=== PATIENT | female | born 1985 | race Caucasian/White ===

== ENCOUNTER 2017-05-21 18:10 | Emergency (ER) | payer SELFPAY ==
[~2017-05-21] VITALS: Wt 79.0 kg
[2017-05-21] MEDS ORDERED: ONDANSETRON (ODT) 4 MG TAB ODT STA (19:08)
[2017-05-21 20:23] LABS: BASOPHILS % 0.4 % (0.0-2.0); EOSINOPHILS # 0.2 10^3/ul (0.0-0.5); EOSINOPHILS % 1.5 % (0.0-7.0); HEMATOCRIT 39.9 % (37.0-47.0); HEMOGLOBIN 13.7 g/dl (12.0-16.0); LYMPHOCYTES # 3.8 10^3/ul (0.8-2.9); LYMPHOCYTES % 32.9 % (15.0-51.0); MEAN CORPUSCULAR HEMOGLOBIN 31.2 pg (29.0-33.0); MEAN CORPUSCULAR HGB CONC 34.3 g/dl (32.0-37.0); MEAN CORPUSCULAR VOLUME 90.9 fl (82.0-101.0); MEAN PLATELET VOLUME 9.9 fl (7.4-10.4); MONOCYTE # 0.8 10^3/ul (0.3-0.9); MONOCYTES % 7.3 % (0.0-11.0); NEUTROPHIL # 6.6 10^3/ul (1.6-7.5); NEUTROPHILS % 57.5 % (39.0-77.0); PLATELET COUNT 302 10^3/UL (140-415); RED BLOOD COUNT 4.39 10^6/ul (4.20-5.40); RED CELL DISTRIBUTION WIDTH 12.1 % (11.5-14.5); WHITE BLOOD COUNT 11.4 10^3/ul (4.8-10.8)
--- NOTE | 2017-05-21 20:23 | RADRPT ---
PROCEDURE: US OB. CLINICAL INDICATION: , pelvic pain. TECHNIQUE: Multiple sonographic images of the pelvis were obtained. Transabdominal and transvagin al views of the pelvis are available for review. The images were reviewed on a PACS workstation. COMPARISON: No prior studies are available for comparison. FINDINGS: The uterus measures 9.8 x 5.3 x 7.2 cm. There is a single intrauterine . The mean gestation al sac diameter measures 1.31 cm, corresponding to a 7-bdpf-9-day . The crown-rump length equals 0.47 cm which corresponds to a 6 feet 1 inch by gestational age by ultrasound criteria. Feta l cardiac activity is not identified. No subchorionic hematoma is identified. The right ovary measures 2.3 x 2.0 x 2.2 cm. There is a 1.4 cm simple right ovarian cyst, normal for age. The left ovary measures 2.0 x 1.3 x 1.7 cm. Blood flow is demonstrated to both ovaries. The ad nexa are unremarkable. There is no free pelvic fluid. IMPRESSION: 1. Single intrauterine gestation of approximately 6 weeks 1 day. cardiac activity is not nilsa ntified, possibly due to early dates. Continued follow-up is recommended. 2. The estimated date of delivery is 01/13/2018. 3. Normal appearance of the ovaries. RPTAT: HTAR .Rafael Woody MD, MD Date Time Electronically viewed and signed by .Rafael Woody MD, MD on 05/21/2017 20:22 .R/
[2017-05-21 20:54] LABS: ADD UMIC YES; UR ASCORBIC ACID NEGATIVE (NEGATIVE); UR BACTERIA FEW /HPF (NONE SEEN); UR BILIRUBIN (Dip) NEGATIVE (NEGATIVE); UR BLOOD (Dip) 2+ mg/dL (NEGATIVE); UR CLARITY SLIGHTLY CLOUDY (CLEAR); UR COLOR STRAW (YELLOW); UR GLUCOSE (Dip) NEGATIVE (NEGATIVE); UR KETONES (Dip) NEGATIVE (NEGATIVE); UR LEUKOCYTE ESTERASE (Dip) NEGATIVE Leu/ul (NEGATIVE); UR NITRITE (Dip) NEGATIVE (NEGATIVE); UR RBC 0 /HPF (0-5); UR SPECIFIC GRAVITY (Dip) 1.005 (1.003-1.030); UR SQUAMOUS EPITHELIAL CELL FEW /HPF (FEW); UR TOTAL PROTEIN (Dip) NEGATIVE (NEGATIVE); UR UROBILINOGEN (Dip) NEGATIVE (NEGATIVE)
[2017-05-21] MEDS ORDERED: ACET325T33 PO (21:47)
--- NOTE | 2017-05-21 22:30 | ERD ---
ER Documentation Chief Complaint Date/Time DATE: 05/21/17 TIME: 22:25 Chief Complaint VAG BLEEDING, ONSET TODAY, MILD PAIN, A1 HPI This is a 31-year-old female presenting to emergency department with vaginal bleeding and mild pelvic pain starting today. Patient is a A1 with last menstrual period end of January. Patient states she had light spotting that turned into more moderate bleeding earlier today. No clots or tissue passed. Patient has not yet seen her OB doctor. Patient has not yet had ultrasound done yet. Patient had positive test at home 1 week ago. Patient currently does not have an OB physician. ROS All systems reviewed and are negative except as per history of present illness. Medications Home Meds Active Scripts Acetaminophen* (Tylenol*) 325 Mg Tablet, 1 TAB PO Q6 Y for PAIN AND OR ELEVATED TEMP, #20 TAB Prov:TAPAN TELLO NP 05/21/17 Allergies Allergies: Coded Allergies: No Known Allergy (Unverified , 05/21/17) PMhx/Soc Medical and Surgical Hx: pt denies Medical Hx, pt denies Surgical Hx Hx Alcohol Use: No Hx Substance Use: No Hx Tobacco Use: No Smoking Status: Never smoker Physical Exam Vitals Vital Signs Date Time Temp Pulse Resp B/P Pulse Ox O2 Delivery O2 Flow Rate FiO2 05/21/17 18:15 99.1 89 17 129/78 99 Physical Exam Const: No acute distress, alert Head: Atraumatic Eyes: Normal Conjunctiva ENT: Normal External Ears, Nose and Mouth. Neck: Full range of motion..~ No meningismus. Resp: Clear to auscultation bilaterally Cardio: Regular rate and rhythm, no murmurs Abd: Soft, non tender, non distended. Normal bowel sounds Skin: No petechiae or rashes Back: No midline or flank tenderness Ext: No cyanosis, or edema Neur: Awake and alert Psych: Normal Mood and Affect Result Diagram: 05/21/171953 Results 24 hrs Laboratory Tests Test 05/21/17 19:54 05/21/17 19:55 White Blood Count 11.410^3/ul Red Blood Count 4.3910^6/ul Hemoglobin 13.7g/dl Hematocrit 39.9% Mean Corpuscular Volume 90.9fl Mean Corpuscular Hemoglobin 31.2pg Mean Corpuscular Hemoglobin Concent 34.3g/dl Red Cell Distribution Width 12.1% Platelet Count 59528^3/UL Mean Platelet Volume 9.9fl Neutrophils % 57.5% Lymphocytes % 32.9% Monocytes % 7.3% Eosinophils % 1.5% Basophils % 0.4% Nucleated Red Blood Cells % 0.0/100WBC Neutrophils # 6.610^3/ul Lymphocytes # 3.810^3/ul Monocytes # 0.810^3/ul Eosinophils # 0.210^3/ul Basophils # 0.010^3/ul Nucleated Red Blood Cells # 0.010^3/ul Beta HCG, Quantitative 80608.0mIU/ml Urine Color STRAW Urine Clarity SLIGHTLY CLOUDY Urine pH 6.0 Urine Specific [place] 1.005 Urine Ketones NEGATIVEmg/dL Urine Nitrite NEGATIVEmg/dL Urine Bilirubin NEGATIVEmg/dL Urine Urobilinogen NEGATIVEmg/dL Urine Leukocyte Esterase NEGATIVELeu/ul Urine Microscopic RBC 0/HPF Urine Microscopic WBC 1/HPF Urine Squamous Epithelial Cells FEW/HPF Urine Bacteria FEW/HPF Urine Hemoglobin 2+mg/dL Urine Glucose NEGATIVEmg/dL Urine Total Protein NEGATIVEmg/dl Current Medications Medications (Trade) Dose Ordered Sig/Jesu Route PRN Reason Start Time Stop Time Status Last Admin Dose Admin Ondansetron HCl (Zofran Odt) 4 mg ONCE STAT ODT 05/21/17 19:08 05/21/17 19:10 DC 05/21/17 19:51 Procedures/MDM [place] [id number] Radiology Main Line: [phone] DIAGNOSTIC IMAGING REPORT Patient: LUCY WEINSTEIN : 1985 Age: 31 Sex: F MR #: [id number] DOS: 05/21/17 1908 Ordering MD: TAPAN TELLO NP Location: [facility] Room/Bed: PROCEDURE: US OB. CLINICAL INDICATION: , pelvic pain. TECHNIQUE: Multiple sonographic images of the pelvis were obtained. Transabdominal and transvaginal views of the pelvis are available for review. The images were reviewed on a PACS workstation. COMPARISON: No prior studies are available for comparison. FINDINGS: The uterus measures 9.8 x 5.3 x 7.2 cm. There is a single intrauterine . The mean gestational sac diameter measures 1.31 cm, corresponding to a 1-dwdb-3-day . The crown-rump length equals 0.47 cm which corresponds to a 6 feet 1 inch by gestational age by ultrasound criteria. cardiac activity is not identified. No subchorionic hematoma is identified. The right ovary measures 2.3 x 2.0 x 2.2 cm. There is a 1.4 cm simple right ovarian cyst, normal for age. The left ovary measures 2.0 x 1.3 x 1.7 cm. Blood flow is demonstrated to both ovaries. The adnexa are unremarkable. There is no free pelvic fluid. IMPRESSION: 1. Single intrauterine gestation of approximately 6 weeks 1 day. cardiac activity is not identified, possibly due to early dates. Continued follow-up is recommended. 2. The estimated date of delivery is 01/13/2018. 3. Normal appearance of the ovaries. MDM: This is a 31-year-old female presenting to emergency department with vaginal bleeding while . Patient's last menstrual period end of January 2017. Patient is a A1.. Patient started having mild to moderate vaginal bleeding earlier today. No clots or tissue passed. Patient had a positive test at home however has not had ultrasound or [employer] visit yet. CBC shows no significant anemia or infection. Beta-hCG is 21,716.0. Urine is negative for infection. OB ultrasound reviewed by radiologist as single intrauterine gestation of approximately 6 weeks 1 day. No cardiac activity is not identified, possibly due to early dates. Continued follow-up is recommended. Normal appearance of the ovaries.Discussed findings with patient. Differential diagnosis includes but not limited to ectopic , threatened , missed , normal , subchorionic hemorrhage , ruptured ovarian cyst, UTI or pyelonephritis. Instructed patient to return in 2 days for repeat lab work and ultrasound. Patient is appropriate for outpatient management. Patient given prescription for Tylenol. Instructed patient to follow-up here in the ED in 2 days. Follow- up with PCP or [employer] in the next week for reassessment and additional management. Resources provided. Return to ED sooner for any high fever, chest pain, difficulty breathing, shortness breath, wheezing, vomiting, diarrhea, abdominal pain or any new or worsening symptoms. Patient verbalizes understanding. All questions answered at discharge. Disclaimer: Inadvertent spelling and grammatical errors are likely due to EHR/ dictation software use and do not reflect on the overall quality of patient care. Also, please note that the electronic time recorded on this note does not necessarily reflect the actual time of the patient encounter. Departure Diagnosis: Primary Impression: Vaginal bleeding in patient at less than 20 weeks ges... Condition: Stable Patient Instructions: Bleeding During Early Referrals: [facility] YOU HAVE RECEIVED A MEDICAL SCREENING EXAM AND THE RESULTS INDICATE THAT YOU DO NOT HAVE A CONDITION THAT REQUIRES URGENT TREATMENT IN THE EMERGENCY DEPARTMENT. FURTHER EVALUATION AND TREATMENT OF YOUR CONDITION CAN WAIT UNTIL YOU ARE SEEN IN YOUR DOCTORS OFFICE WITHIN THE NEXT 1-2 DAYS. IT IS YOUR RESPONSIBILITY TO MAKE AN APPOINTMENT FOR FOLOW-UP CARE. IF YOU HAVE A PRIMARY DOCTOR --you should call your primary doctor and schedule an appointment IF YOU DO NOT HAVE A PRIMARY DOCTOR YOU CAN CALL OUR PHYSICIAN REFERRAL HOTLINE AT IF YOU CAN NOT AFFORD TO SEE A PHYSICIAN YOU CAN CHOSE FROM THE FOLLOWING [facility] [address] [facility] [address] [facility] [address] [facility] [address] [facility] [address] [facility]. [facility]. [address] [facility]. [facility] YOU HAVE RECEIVED A MEDICAL SCREENING EXAM AND THE RESULTS INDICATE THAT YOU DO NOT HAVE A CONDITION THAT REQUIRES URGENT TREATMENT IN THE EMERGENCY DEPARTMENT. FURTHER EVALUATION AND TREATMENT OF YOUR CONDITION CAN WAIT UNTIL YOU ARE SEEN IN YOUR DOCTORS OFFICE WITHIN THE NEXT 1-2 DAYS. IT IS YOUR RESPONSIBILITY TO MAKE AN APPOINTMENT FOR FOLOW-UP CARE. IF YOU HAVE A PRIMARY DOCTOR --you should call your primary doctor and schedule and appointment IF YOU DO NOT HAVE A PRIMARY DOCTOR YOU CAN CALL OUR PHYSICIAN REFERRAL HOTLINE AT . IF YOU CAN NOT AFFORD TO SEE A PHYSICIAN YOU CAN CHOSE FROM THE FOLLOWING [facility]: [facility] [address] [place] [address] [facility] [address] [place] [address] [facility] [address] [place] [address] [employer] [address] [facility] [address] [place] [address] OFFICE FAX , [facility] [address] [place] [address] [address] MARSHALL, [place] [address] [place] [address] [address] ANDERSON, [facility] [address] [facility], [address] [facility] [address] [address]LAND, [facility] [address] [facility] [place] [address] [facility] [address] [place] [address] [facility] [address] - JAVON GOMEZ [address] [facility]. [address], [facility] [address] [address] DENNIS, [place] [address] [facility]. [address], [facility] [place] [address] [address] BROCK, [facility] [address] [place], [place] [address] Additional Instructions: Return to this facility in 2 DAYS for a follow-up exam.Return sooner if your condition worsens. Return to ED for any high fever, chest pain, difficulty breathing, shortness breath, wheezing, vomiting, diarrhea, abdominal pain or any new or worsening symptoms. TAPAN TELLO NP May 21, 2017 22:29
== END 2017-05-21 21:48 | disposition left against medical advice (07) ==
LOC: FTE 18:10
DX: O20.9 Hemorrhage in early pregnancy, unspecified (principal); R10.2 Pelvic and perineal pain; Z3A.01 Less than 8 weeks gestation of pregnancy
CPT/HCPCS: 36415; 76801; 76817; 81001; 84702; 85025; 86900; 86901

== ENCOUNTER 2017-05-26 04:03 | Emergency (ER) | payer SELFPAY ==
[~2017-05-26] VITALS: Ht 167.6 cm; Wt 78.5 kg
[~2017-05-26 04:03] MED LIST: ACET325T33 PO
[2017-05-26 04:06] VITALS: Ht 167.6 cm; Wt 78.5 kg
--- NOTE | 2017-05-26 05:06 | ERD ---
ER Documentation Chief Complaint Date/Time DATE: 05/26/17 TIME: 05:02 Chief Complaint pt reports 6 weeks spotting 4 days ago, abd cramping today HPI 31-year-old female presents here in emergency department for complaints of vaginal bleeding for 4 days now, was seen here 4 days ago for the same problem , was initially spotting, now has heavier bleeding. She is complaining of pelvic pain and cramping pain, 4/10 scale, not better or worse with anything. Patient denies any flank pain. Patient denies any hematuria or dysuria. Patient is 3 para 1 0. LMP January 2017, unknown date. ROS All systems reviewed and are negative except as per history of present illness. Medications Home Meds Active Scripts Acetaminophen* (Tylophen*) 500 Mg Capsule, 1 CAP PO Q6H Y for PAIN AND OR ELEVATED TEMP, #20 CAP Prov:JAE PRIDE DISTRIBUTION TRANSFORMER ASSEMBLER 05/26/17 Acetaminophen* (Tylenol*) 325 Mg Tablet, 1 TAB PO Q6 Y for PAIN AND OR ELEVATED TEMP, #20 TAB Prov:TAPAN TELLO DISTRIBUTION TRANSFORMER ASSEMBLER 05/21/17 Allergies Allergies: Coded Allergies: No Known Allergy (Unverified , 05/21/17) PMhx/Soc Medical and Surgical Hx: pt denies Medical Hx, pt denies Surgical Hx Hx Alcohol Use: No Hx Substance Use: No Hx Tobacco Use: No Smoking Status: Never smoker FmHx Family History: No coronary disease, No diabetes, No other Physical Exam Vitals Vital Signs Date Time Temp Pulse Resp B/P Pulse Ox O2 Delivery O2 Flow Rate FiO2 05/26/17 06:57 98.3 80 20 118/70 98 Room Air 05/26/17 04:06 98.5 90 16 117/80 100 Physical Exam GENERAL: The patient is well developed and appropriate for usual state of health, in no apparent distress. CHEST: Clear to auscultation bilaterally. There are no rales, wheezes or rhonchi. HEART: Regular rate and rhythm. No murmurs, clicks, rubs or gallops. No S3 or S4. ABDOMEN: Soft, nontender and nondistended. Good bowel sounds. No rebound or guarding. No gross peritonitis. No gross organomegaly or masses. No Mcclure sign or McBurney point tenderness. BACK: No midline or flank tenderness. EXTREMITIES: Equal pulses bilaterally. There is no peripheral clubbing, cyanosis or edema. No focal swelling or erythema. Full range of motion. Grossly neurovascularly intact. NEURO: Alert and oriented. Cranial nerves 2-12 intact. Motor strength in all 4 extremities with 5/5 strength. Sensation grossly intact. Normal speech and gait. SKIN: There is no apparent rash or petechia. The skin is warm and dry. HEMATOLOGIC AND LYMPHATIC: There is no evidence of excessive bruising or lymphedema. No gross cervical, axillary, or inguinal lymphadenopathy. VAGINAL: moderate amount of blood in the vaginal vault, cervical os is closed, no CMT, no adnexal tenderness Result Diagram: 05/26/17 0455 Results 24 hrs Laboratory Tests Test 05/26/17 04:55 White Blood Count 9.110^3/ul Red Blood Count 4.5010^6/ul Hemoglobin 13.9g/dl Hematocrit 40.5% Mean Corpuscular Volume 90.0fl Mean Corpuscular Hemoglobin 30.9pg Mean Corpuscular Hemoglobin Concent 34.3g/dl Red Cell Distribution Width 11.9% Platelet Count 69593^3/UL Mean Platelet Volume 9.7fl Neutrophils % 60.0% Lymphocytes % 30.8% Monocytes % 6.5% Eosinophils % 2.0% Basophils % 0.3% Nucleated Red Blood Cells % 0.0/100WBC Neutrophils # 5.510^3/ul Lymphocytes # 2.810^3/ul Monocytes # 0.610^3/ul Eosinophils # 0.210^3/ul Basophils # 0.010^3/ul Nucleated Red Blood Cells # 0.010^3/ul Urine Color RED Urine Clarity TURBID Urine pH 6.0 Urine Specific [place] 1.023 Urine Ketones NEGATIVEmg/dL Urine Nitrite NEGATIVEmg/dL Urine Bilirubin NEGATIVEmg/dL Urine Urobilinogen NEGATIVEmg/dL Urine Leukocyte Esterase NEGATIVELeu/ul Urine Microscopic RBC > 182/HPF Urine Microscopic WBC 0/HPF Urine Mucus FEW/HPF Urine Hemoglobin 3+mg/dL Urine Glucose 1+mg/dL Urine Total Protein 2+mg/dl Beta HCG, Quantitative 74015.0mIU/ml AMENDMENT: 05/26/2017 5:37:43 AM Katelyn Felix M.d In comparison is made to prior examination dated 05/21/2017. No heart tones are present on the prior examination, there has been no interval growth. Findings are compatible with early failed . PROCEDURE: US OB. CLINICAL INDICATION: Vaginal bleeding in . TECHNIQUE: Transabdominal and endovaginal imaging of the gravid uterus is available for review COMPARISON: None available FINDINGS: There is a single intrauterine with a crown-rump length of 0.39 cm, giving an estimated gestational age of 6 weeks 1 day by ultrasound criteria. No heart tones are detected. No subchorionic hemorrhage is identified. The ovaries are unremarkable. IMPRESSION: Single intrauterine with an estimated gestational age of 6 weeks 1 day by ultrasound criteria. No heart tones are detected. Findings are suspicious for early failed . Repeat pelvic ultrasound is recommended in 1 week. RPTAT: HH .Katelyn Felix MD, Date Time Electronically viewed and signed by .Katelyn Felix MD, MD on 05/26/2017 05 :37 .G/ CC: JAE PRIDE DISTRIBUTION TRANSFORMER ASSEMBLER Procedures/MDM Medical Decision Making: Patients vaginal bleeding is most likely consistent of possible threatened . Patient does not show any evidence of hypovolemic shock. Patients hemoglobin and hematocrit is stable. There is low suspicion for ectopic . SUZE results show 6 week 1 days without FHT, same as last time, consistent with failed . BetaHCG Quantitative is lower than befrore.The patient is Rh+, does not need RhoGAM this time. There is no signs of symptoms of dehydration. There is low suspicion for sepsis. Patient appears well and is hemodynamically stable. Disposition: Home. Condition: Stable Rx; Tylenol Instructions: Patient is advised to do bed rest, avoid heavy lifting, and avoid having sex until cleared by OB doctor. Patient is advised to follow up with OB doctor or here at the ER in 48 hours for reevaluation of symptoms, repeat beta HCG quantitative and ultrasound. Patient is advised that is symptoms are worst, severe bleeding, dizziness, severe abdominal pain, fever, worst signs and symptoms to return to the emergency department immediately. Disclaimer: Inadvertent spelling and grammatical errors are likely due to EHR/ dictation software use and do not reflect on the overall quality of patient care. Also, please note that the electronic time recorded on this note does not necessarily reflect the actual time of the patient encounter. Departure Diagnosis: Primary Impression: Vaginal bleeding in patient at less than 20 weeks gestation Condition: Stable Patient Instructions: Bleeding During Early Additional Instructions: Patient is advised to do bed rest, avoid heavy lifting, and avoid having sex until cleared by OB doctor. Patient is advised to follow up with OB doctor or here at the ER in 48 hours for reevaluation of symptoms, repeat beta HCG quantitative and ultrasound. Patient is advised that is symptoms are worst, severe bleeding, dizziness, severe abdominal pain, fever, worst signs and symptoms to return to the emergency department immediately. JAE PRIDE NP May 26, 2017 05:06
[2017-05-26 05:12] LABS: BASOPHILS % 0.3 % (0.0-2.0); EOSINOPHILS # 0.2 10^3/ul (0.0-0.5); HEMATOCRIT 40.5 % (37.0-47.0); HEMOGLOBIN 13.9 g/dl (12.0-16.0); LYMPHOCYTES # 2.8 10^3/ul (0.8-2.9); LYMPHOCYTES % 30.8 % (15.0-51.0); MEAN CORPUSCULAR HEMOGLOBIN 30.9 pg (29.0-33.0); MEAN CORPUSCULAR HGB CONC 34.3 g/dl (32.0-37.0); MEAN PLATELET VOLUME 9.7 fl (7.4-10.4); MONOCYTE # 0.6 10^3/ul (0.3-0.9); MONOCYTES % 6.5 % (0.0-11.0); NEUTROPHIL # 5.5 10^3/ul (1.6-7.5); PLATELET COUNT 286 10^3/UL (140-415); RED CELL DISTRIBUTION WIDTH 11.9 % (11.5-14.5); WHITE BLOOD COUNT 9.1 10^3/ul (4.8-10.8)
[2017-05-26 05:26] LABS: ADD UMIC YES; UR ASCORBIC ACID NEGATIVE (NEGATIVE); UR BILIRUBIN (Dip) NEGATIVE (NEGATIVE); UR BLOOD (Dip) 3+ mg/dL (NEGATIVE); UR CLARITY TURBID (CLEAR); UR COLOR RED (YELLOW); UR GLUCOSE (Dip) 1+ mg/dL (NEGATIVE); UR KETONES (Dip) NEGATIVE (NEGATIVE); UR LEUKOCYTE ESTERASE (Dip) NEGATIVE Leu/ul (NEGATIVE); UR MUCUS FEW /HPF (NONE SEEN); UR NITRITE (Dip) NEGATIVE (NEGATIVE); UR RBC > 182 /HPF (0-5); UR SPECIFIC GRAVITY (Dip) 1.023 (1.003-1.030); UR TOTAL PROTEIN (Dip) 2+ mg/dl (NEGATIVE); UR UROBILINOGEN (Dip) NEGATIVE (NEGATIVE)
--- NOTE | 2017-05-26 05:37 | RADRPT ---
AMENDMENT: 05/26/2017 5:37:43 AM Katelyn Felix M.d In comparison is made to prior examination dated 05/21/2017. No heart tones are present on the prior examination, there has been no interval growth. Findings are compatible with early failed pre gnancy. PROCEDURE: US OB. CLINICAL INDICATION: Vaginal bleeding in . TECHNIQUE: Transabdominal and endovaginal imaging of the gravid uterus is available for review COMPARISON: None available FINDINGS: There is a single intrauterine with a crown-rump length of 0.39 cm, giving an estimated ge stational age of 6 weeks 1 day by ultrasound criteria. No heart tones are detected. No subch orionic hemorrhage is identified. The ovaries are unremarkable. IMPRESSION: Single intrauterine with an estimated gestational age of 6 weeks 1 day by ultrasound crite derrick. No heart tones are detected. Findings are suspicious for early failed . Repea t pelvic ultrasound is recommended in 1 week. RPTAT: HH .Katelyn Felix MD, Date Time Electronically viewed and signed by .Katelyn Felix MD, on 05/26/2017 05:37 .G/
[2017-05-26] MEDS ORDERED: ACET500C5 PO (05:48)
[2017-05-26 06:57] VITALS: BP 118/70; PULSE 80; RESP 20; TEMP 98.3
== END 2017-05-26 07:10 | disposition home or self-care (01) ==
LOC: FTE 04:03
DX: O20.9 Hemorrhage in early pregnancy, unspecified (principal); R10.2 Pelvic and perineal pain; Z3A.01 Less than 8 weeks gestation of pregnancy
CPT/HCPCS: 36415; 76801; 76817; 81001; 84702; 85025

== ENCOUNTER 2018-11-24 13:44 | Inpatient (IN) | payer MEDICAID ==
[~2018-11-24] VITALS: Ht 165.1 cm; Wt 91.0 kg
[~2018-11-24 13:44] MED LIST changes: +ACET500C5 PO
[2018-11-24 14:57] VITALS: Ht 165.1 cm; Wt 91.0 kg
[2018-11-24 15:01] VITALS: BP 132/80; PULSE 95; RESP 17
[2018-11-24] MEDS ORDERED: METHYLERGONOVINE 0.2 MG INJ IM PRN (16:00)
[2018-11-24] MEDS ORDERED: CARBOPROST 250 MCG INJ IM PRN (16:00)
[2018-11-24] MEDS ORDERED: OXYTOCIN 30 UNITS/LR 500 ML IV SCH ×2 (16:00)
[2018-11-24] MEDS ORDERED: OXYTOCIN 30 UNITS/LR 500 ML IV PRN (16:00)
[2018-11-24] MEDS ORDERED: MISOPROSTOL 200 MCG TAB PR PRN (16:00)
[2018-11-24] MEDS ORDERED: LIDOCAINE 1% (MPF) 30 ML INJ INJ PRN (16:00)
[2018-11-24] MEDS: MISOPROSTOL 50 MCG CAPSULE PO SCH ×2 (16:46→20:55)
[2018-11-24] MEDS: LACTATED RINGER'S 1,000 ML IV SCH (20:55)
[2018-11-25] MEDS: LACTATED RINGER'S 1,000 ML IV SCH ×3 (03:06→11:04)
[2018-11-25] MEDS: MISOPROSTOL 50 MCG CAPSULE PO SCH ×5 (03:07→17:00)
--- NOTE | 2018-11-25 09:52 | PREAC ---
Date/Time of Note Date/Time of Note DATE: 11/25/18 TIME: 09:51 Anesthesia Eval and Record Evaluation Time Pre-Procedure Interview DATE: 11/25/18 TIME: 09:51 Age 33 Sex female NPO: 8 hrs Preoperative diagnosis labor pain Planned procedure epidural Past Medical History Past Medical History: Includes : Gestational age: (39.2) Surgery & Anesthesia Issues No known issue Meds Anticoagulation: No Beta Ayaan within 24 hr: No Reason Beta Ayaan not given: Pt. not on B-Ayaan Active Scripts Acetaminophen* (Tylophen*) 500 Mg Capsule, 1 CAP PO Q6H PRN for PAIN AND OR ELEVATED TEMP, #20 CAP Prov:JAE PRIDE WINE AND SPIRITS CLERK 05/26/17 Acetaminophen* (Tylenol*) 325 Mg Tablet, 1 TAB PO Q6 PRN for PAIN AND OR ELEVATED TEMP, #20 TAB Prov:TAPAN TELLO WINE AND SPIRITS CLERK 05/21/17 Current Medications Lactated Ringer's 1,000 ml @ 125 mls/hr Q8H IV Last administered on 11/25/18at 03:06; Admin Dose 125 MLS/HR; Start 11/24/18 at 15:35 Lidocaine (Xylocaine 1% (Mpf)) 30 ml ONCE PRN INJ .EPISIOTOMY; Start 11/24/18 at 16:00 Oxytocin/Lactated Ringer's 500 ml @ 500 mls/hr ONCE POST IV ; Start 11/24/18 at 16:00 Oxytocin/Lactated Ringer's 500 ml @ 125 mls/hr POST IV ; Start 11/24/18 at 16:00 Oxytocin/Lactated Ringer's 500 ml @ 0 mls/hr ONCE PRN IV .VAGINAL BLEEDING; Start 11/24/18 at 16:00 Methylergonovine Maleate (Methergine) 0.2 mg ONCE PRN IM .VAGINAL BLEEDING; Start 11/24/18 at 16:00 Carboprost Tromethamine (Hemabate) 250 mcg ONCE PRN IM .VAGINAL BLEEDING; Start 11/24/18 at 16:00 Misoprostol (Cytotec) 1,000 mcg ONCE PRN RI .VAGINAL BLEEDING; Start 11/24/18 at 16:00 Misoprostol (Cytotec 50 Mcg Capsule) 50 mcg Q4 PO Last administered on 11/25/18at 07:57; Admin Dose 50 MCG; Start 11/24/18 at 17:00; Stop 11/25/18 at 17:00 Meds reviewed: Yes Allergies Coded Allergies: No Known Allergy (Unverified , 05/21/17) Allergies Reviewed: Yes Labs/Studies Labs Reviewed: Reviewed by anesthesiologist Result Diagram: 11/24/18 1429 Laboratory Tests 11/24/18 14:29 Blood Bank Test 11/24/18 14:29 Antibody Screen NEGATIVE Blood Type B POSITIVE Rh Immune Globulin Candidate NO test: Positive Studies: ECG (n/a), CXR (n/a) Pre-procedure Exam Last vitals Vital Signs Date Temp Pulse Resp B/P (MAP) Pulse Ox O2 O2 Flow FiO2 Time Delivery Rate 11/24/18 98.1 95 17 132/80 99 Room Air 15:01 (97) Airway: Adequate mouth opening Mallampati: Mallampati I Teeth: Normal Lung: Normal Heart: Normal ASA Physical Status ASA physical status: 2 Emergency: None Planned Anesthetic Neuraxial: Epidural Pre-operative Attestations Prior to commencing anesthesia and surgery, the patient was re-evaluated, there was verification of: *The patient's identity *The results of appropriate recent lab work and preoperative vital signs *The above evaluation not changing prior to induction *Anesthetic plan, risk benefits, alternative and complications discussed with patient/family; questions answered; patient/family understands, accepts and wishes to proceed. ANTONIA HANSEN MD Nov 25, 2018 09:52
[2018-11-25] MEDS ORDERED: FENTAnyl 2MCG/ML-ROPIV 0.2% 100 ML ONE (10:09)
--- NOTE | 2018-11-25 12:50 | PAC ---
Date/Time of Note Date/Time of Note DATE: 11/25/18 TIME: 12:49 Post-Anesthesia Notes Post-Anesthesia Note Last documented vital signs Vital Signs Date Temp Pulse Resp B/P (MAP) Pulse Ox O2 O2 Flow FiO2 Time Delivery Rate 11/25/18 98.1 95 17 132/80 99 Room Air 12:01 (97) Activity: WNL Respiratory function: WNL Cardiovascular function: WNL Mental status: Baseline Pain reasonably controlled: Yes Hydration appropriate: Yes Nausea/Vomiting absent: No ANTONIA HANSEN MD Nov 25, 2018 12:50
[2018-11-25] MEDS ORDERED: NALOXONE (0.4 MG/ML) INJ IV PRN (13:00)
[2018-11-25] MEDS ORDERED: FENTAnyl 2MCG/ML-ROPIV 0.2% 100 ML BAG EPI SCH (13:00)
[2018-11-25] MEDS ORDERED: ONDANSETRON 4 MG INJ IV PRN ×2 (13:00→21:30)
[2018-11-25 18:14] VITALS: BP 138/80; PULSE 60; RESP 19
[2018-11-25 18:29] VITALS: BP 150/83; PULSE 70; RESP 18
[2018-11-25 18:43] VITALS: BP 143/67; PULSE 78; RESP 18
--- NOTE | 2018-11-25 19:00 | HP ---
Date/Time of Note Date/Time of Note DATE: 11/25/18 TIME: 18:55 OB - History Hx of Present Free Text/Dictation Late entry note. Patient seen on 11/24/2018 33 years old with single intrauterine at 39 weeks and 3 days with a YANA of 11/29/2018 was seen at [facility] yesterday for pyelectasis. She was complaining of shortness of breath. She referred to labor and delivery for induction of labor. She states good movement. She denies nausea, vomiting, shortness of breath, chest pain, headache, visual changes, vaginal bleeding or LOF. Chief Complaint: Admitted for induction of labor Estimated Due Date: Nov 29, 2018 : 4 Para: 1 Spontaneous : 2 Therapeutic : 0 Care: Good Care Ultrasounds: Normal mid trimester US Medical Complications: None Past Family/Social History * Past Medical, Surgical, Family and Obstetric Histories reviewed from chart. Blood Type: B+ Rubella: immune RPR/VDRL: Negative GBS Status: Negative HBsAG: Negative OB Admission Exam Vital Signs Vital Signs Vital Signs Date Temp Pulse Resp B/P (MAP) Pulse Ox O2 O2 Flow FiO2 Time Delivery Rate 11/25/18 98.9 60 19 138/80 Room Air 18:14 (99) 11/24/18 99 15:01 Physical Exam HEENT: WNL Heart: Rhythm Normal Lungs: Clear Abdomen: WNL Extremities: Normal Reflexes: Normal Cervical Dilatation: 1cm Effacement: 50% Station: -2 Membranes: Intact Heart Rate: 140's Accelerations: Accelerations Present Decelerations: No Decelerations Varibility: Moderate Contractions on Admission: >10 Minutes Apart Intensity: Mild Last 72 hours Lab Results CBC & BMP 11/24/18 14:29 OB Assessment/Plan Other plan: 33 years old 4 para 1021 with single intrauterine at 39 weeks and 3 days admitted for induction of labor for pyelectasis and having shortness of breasts - FHR: No sign of metabolic acidosis- Category I - Continuous EFM, toco - CBC, blood type and screen - Analgesia options with R/B/A discussed in detail with patient - Epidural per patient request - Please see the orders - OB/Rubella: Immune - GBS: Negative Admission, procedures, expectations, risks and possible complications have been discussed in detail with the patient. Risk of vaginal delivery including but not limited to bleeding, infection, cervical laceration, placental retention, injury to fetus, blood transfusion, blood transfusion related infection, risk of anesthesia, adhesion, cervical laceration, episiotomy/laceration, possible delivery with risk of bleeding, infection, injury to other organs (bowel, bladder, ureter, vessels, nerves), injury to fetus, blood transfusion, blood transfusion related infection, risk of anesthesia, scar and hernia formation, needs for future , removal of uterus or any other indicated surgery discussed with the patient. She expressed understanding and repeats the risks. All of her questions were answered. She signed the informed consent. PHYSICIAN'S VERIFICATION OF INFORMED CONSENT The patient was counseled regarding the procedure, its indications, risks, po tential complications and alternatives and any questions were answered. Consent was obtained. PLANNED PROCEDURE/TREATMENT: Vaginal delivery, episiotomy, repair of laceration possible delivery SIVA OLEARY Nov 25, 2018 19:00
[2018-11-25] MEDS ORDERED: ONDANSETRON 4 MG INJ IV STA (19:40)
[2018-11-25] MEDS ORDERED: ACETAMINOPHEN 325 MG TAB PO PRN ×2 (20:00→21:30)
--- NOTE | 2018-11-25 20:25 | LDN ---
Date/Time of Note Date/Time of Note DATE: 11/25/18 TIME: 20:21 Delivery Summary 33 years old with single intrauterine at 39 weeks and 4 days delivered a viable male over median episiotomy. Nose and mouth suctioned. Rest of body delivered. Cord was clamped and cut after stopping pulsation. Baby given to the nurse. Placenta delivered intact and spontaneously with three-vessel cord. Episiotomy and vaginal wall laceration at left lateral repaired with 2-0 Vicryl. Patient tolerated procedure well. Time of delivery 17:24 Weight 9 pounds 3 ounces - 4175 g 8 at 1 minutes and 9 at 5 minutes EBL 300 ml Weeks of Gestation 39 weeks and 4 days Placenta Delivered: Spontaneously Meconium: none Episiotomy: Yes Indication for episiotomy Facilitate vaginal delivery Anesthesia type: Epidural Estimated blood loss: 300 Sponge & Needle done & correct: Yes All needle counts correct: Yes Any foreign bodies felt in the: No Infant Delivery Information Sex Infant Sex: male Apgars 1 Minute: 8 5 Minute: 9 10 Minute: 10 Suctioning Nose & mouth suctioned at jennifer: Yes Umbilical Cord Umbilical cord with: 3 Vessels Cord presentations: no nuchal cord Cord Blood was obtained: Yes Mother & Baby Disposition Disposition Mom & Baby to Maternity; Good: Yes SIVA OLE[facility] Nov 25, 2018 20:25
[2018-11-25] MEDS ORDERED: LABETALOL 100 MG TAB PO SCH (21:00)
[2018-11-25] MEDS ORDERED: DEXTROSE 5%-LR 1,000 ML IV SCH (21:16)
[2018-11-25] MEDS ORDERED: LACTATED RINGER'S 1,000 ML IV* SCH (21:16)
[2018-11-25 21:25] VITALS: BP 119/74; PULSE 81; RESP 18
[2018-11-25] MEDS ORDERED: BENZOCAINE 20% 56 ML SPRAY TOP PRN (21:30)
[2018-11-25] MEDS ORDERED: CARBOPROST 250 MCG INJ IM PRN (21:30)
[2018-11-25] MEDS ORDERED: METHYLERGONOVINE 0.2 MG INJ IM PRN (21:30)
[2018-11-25] MEDS ORDERED: DIPHENHYDRAMINE 50 MG INJ IV PRN (21:30)
[2018-11-25] MEDS ORDERED: WITCH HAZEL/GLYCERIN PAD PR PRN (21:30)
[2018-11-25] MEDS ORDERED: ZOLPIDEM 5 MG TAB PO PRN (21:30)
[2018-11-25] MEDS ORDERED: DIBUCAINE 1% 30 GM OINT TOP PRN (21:30)
[2018-11-25] MEDS ORDERED: OXYCODONE/ASPIRIN (4.88/325) TAB PO PRN (21:30)
[2018-11-25] MEDS ORDERED: OXYTOCIN 30 UNITS/LR 500 ML IV PRN (21:30)
[2018-11-25] MEDS ORDERED: MISOPROSTOL 200 MCG TAB PR PRN (21:30)
[2018-11-25] MEDS: IBUPROFEN 600 MG TAB PO SCH (23:31)
[2018-11-25] MEDS: SENNA/DOCUSATE NA (8.6MG/50MG) TAB PO PRN (23:31)
[2018-11-25] MEDS: LANOLIN HPA 1 PKT TOP PRN (23:31)
[2018-11-25 23:53] VITALS: BP 120/81; PULSE 91; RESP 18
[2018-11-26 03:51] VITALS: BP 102/72; PULSE 95
[2018-11-26] MEDS: IBUPROFEN 600 MG TAB PO SCH ×3 (05:49→17:11)
[2018-11-26 07:40] VITALS: BP 108/69; PULSE 82; RESP 18
[2018-11-26] MEDS: LANOLIN HPA 1 PKT TOP PRN (07:49)
[2018-11-26] MEDS: SENNA/DOCUSATE NA (8.6MG/50MG) TAB PO PRN (09:42)
--- NOTE | 2018-11-26 10:04 | PN ---
Date/Time of Note Date/Time of Note DATE: 11/26/18 TIME: 10:03 OB Subjective Subjective Subjective PPD# 1 Patient is doing well. She denies nausea, vomiting, shortness of breath, chest pain, headache. She has been ambulating without difficulty, tolerating regular diet. Pain is well controlled on current medications OB Objective Objective Objective VS - Last 72 Hours, by Label Date Temp Pulse Resp B/P (MAP) Pulse Ox O2 O2 Flow FiO2 Time Delivery Rate 11/26/18 98.1 95 102/72 Room Air 03:51 (82) 11/25/18 97.8 91 18 120/81 Room Air 23:53 (94) 11/25/18 99.0 81 18 119/74 Room Air 21:25 (89) 11/25/18 78 18 143/67 Room Air 18:43 (92) 11/25/18 70 18 150/83 Room Air 18:29 (105) 11/25/18 98.9 60 19 138/80 Room Air 18:14 (99) 11/24/18 98.1 95 17 132/80 99 Room Air 15:01 (97) General: AAO X 3, comfortable, NAD, appropriate mood and affect. ABD: +BS. Soft, non-tender. Uterus 2 cm below umbilicus Flank: No CVA tenderness (B/L) LE: Mild edema. No clubbing, cyanosis, thigh or calf tenderness (B/L). Homans 'sign is negative OB Assessment/Plan Other plan: 33 years old 4 para 2021 s/p normal vaginal delivery at 39 weeks and 4 days. PPD#1 - AF, VSS - Contraception methods with R/B/A/FR discussed - Continue care - Discharge home tomorrow - Rx and instruction given - Follow up in 2 and 6 weeks at clinic [facility] Nov 26, 2018 10:04
--- NOTE | 2018-11-26 10:08 | DS ---
Date/Time of Note Date/Time of Note DATE: 11/26/18 TIME: 10:07 Obstetrical Discharge Record Final Diagnosis Final Diagnosis: Term delivered Other Final Diagnosis 33 years old 4 para 2021 s/p normal vaginal delivery at 39 weeks and 4 days. PPD#1. course was unremarkable. She is ambulating and tolerating regular diet. She is voiding without difficulty. Pain is controlled on current medication. - AF, VSS - Contraception methods with R/B/A/FR discussed - Continue care - Discharge home tomorrow - Rx and instruction given - Follow up in 2 and 6 weeks at clinic Vaginal Delivery Obstetrical Delivery: Spontaneous Condition on Discharge Physical Assessment Last Vitals: Vital Signs Date Temp Pulse Resp B/P (MAP) Pulse Ox O2 O2 Flow FiO2 Time Delivery Rate 11/26/18 98.1 95 102/72 Room Air 03:51 (82) 11/25/18 18 23:53 11/24/18 99 15:01 Voiding: Yes Bowel Movement: Yes Breast: Soft, non-tender Fundus: Firm Calf Tenderness: No Patient Condition: Stable SIVA OLE[facility] Nov 26, 2018 10:08
[2018-11-26 15:30] VITALS: BP 111/67; PULSE 82; RESP 18
[2018-11-26 20:00] VITALS: BP 115/72; PULSE 89; RESP 16
[2018-11-27] MEDS: IBUPROFEN 600 MG TAB PO SCH ×3 (00:14→11:52)
[2018-11-27 04:48] VITALS: BP 115/70; PULSE 76; RESP 20
[2018-11-27 08:10] VITALS: BP 122/90; PULSE 82; RESP 18
[2018-11-27] MEDS ORDERED: DIPHTH/TET/ACEL PERTUSS (ADULT) 0.5 ML VIAL IM* ONE (09:00)
[2018-11-27] MEDS ORDERED: MEASLES,MUMPS,RUBELLA VACCINE INJ SC* ONE (09:00)
[2018-11-27] MEDS: SENNA/DOCUSATE NA (8.6MG/50MG) TAB PO PRN (09:29)
--- NOTE | 2018-11-27 14:00 | PD.PPDC ---
ON SITE PROPERTY MANAGER Discharge Instruction Diagnosis [id number] Final Diagnosis: Ymnhu1n s/p Condition [id number] Patient Condition: [id number] Stable Diet Izydj2Js Diet: Xqdep1g Resume Regular Diet Activity/Restrictions [id number] Restrictions: Vtedv4t No Lifting No Sexual Activity Nothing in the Vagina No [place] No Tampons, douche Follow-up Follow-up with Physician: 2, Week/Weeks Return to clinic for [id number] HOUSE REPAIRER Instructions: Fhadp0v Fever greater than 101 Chills Worsening abdominal pain Excessive Vaginal Bleeding More than 2 pads per hour Unable to tolerate diet [id number] OB Instructions: Onanv8e Breast Tenderness Depression Blurried Vision Headache HARIS HAHN MD Nov 27, 2018 14:00
--- NOTE | 2018-11-30 11:21 | DELSUM ---
Delivery Summary A-C Datetime Report Generated by CPN: 11/30/2018 11:20 DELIVERY PERSONNEL Stuffing Machine Operator: Olga Ackerman MATERNAL INFORMATION Delivery Anesthesia: Epidural Medications in Delivery: LR W/30 UNITS PITOCIN Maternal Complications: None LABOR SUMMARY EDC: 11/29/2018 00:00 No. Babies in Womb: 1 Attempted: No Labor Anesthesia: Epidural LABOR INFORMATION Reason for Induction: Gest. HTN/PreEclam/Eclamp Onset of Labor: 11/24/2018 16:46 Complete Dilatation: 11/25/2018 16:36 Cervical Ripening Agents: Cytotec @ Oxytocin: N/A Group B Beta Strep: Negative Antibiotics # of Doses: 0 Steroids Given: None Reason Steroids Not Administered: Not Applicable MEMBRANES Membranes Rupture Method: Artificial Rupture of Membranes: 11/25/2018 08:17 Length of Rupture (hr): 9.12 Amniotic Fluid Color: Clear Amniotic Fluid Amount: Moderate Amniotic Fluid Odor: None STAGES OF LABOR Stage 1 hr: 23 Stage 1 min: 50 Stage 2 hr: 0 Stage 2 min: 48 Stage 3 hr: 0 Stage 3 min: 15 Total Time in Labor hr: 24 Total Time in Labor min: 53 VAGINAL DELIVERY Episiotomy: Median Laceration Extension: First Degree Laceration Type: Vaginal Laceration Repair: Yes Initial Vag Sponge Count: 10 Final Vag Sponge Count: 10 Initial Vag Sharps Count: 1 Final Vag Sharps Count: 2 Sponge Count Correct: Yes Sharps Count Correct: Yes BABY A INFORMATION Infant Delivery Date/Time: 11/25/2018 17:24 Method of Delivery: Vaginal Born in Route : No : N/A Forceps: N/A Vacuum Extraction: N/A Shoulder Dystocia : N/A SHOULDER DYSTOCIA BABY A Infant Delivery Date/Time: 11/25/2018 17:24 PRESENTATION/POSITION BABY A Presentation: Cephalic Cephalic Presentation: Vertex Breech Presentation: N/A PLACENTA INFORMATION BABY A Placenta Delivery Time : 11/25/2018 17:39 Placenta Method of Delivery: Spontaneous Placenta Status: Delivered SCORES BABY A Heart Rate 1 min: >100 bpm Resp Effort 1 min: Good Cry Reflex Irritability 1 min: Cough/Sneeze/Pulls Away Muscle Tone 1 min: Active Motion Color 1 min: Blue/Pale Resuscitation Effort 1 min: Tactile Stimulation SCORE 1 MIN: 8 Heart Rate 5 min: >100 bpm Resp Effort 5 min: Good Cry Reflex Irritability 5 min: Cough/Sneeze/Pulls Away Muscle Tone 5 min: Active Motion Color 5 min: Body [place], Extremit Blue Resuscitation Effort 5 min: Tactile Stimulation SCORE 5 MIN: 9 INFORMATION BABY A Gestational Age at Delivery: 39.3 Gestational Status: Full Term- 39- 40.6 Weeks Outcome : Liveborn Condition : Stable Infant Sex: Male IDENTIFICATION/MEDS BABY A ID Band Number: [id number] ID Band Location: Right Leg; Left Arm Sensor Applied: Yes Sensor Number: [id number] Sensor Location : Cord Clamp Vitamin K Given : Not Given Erythromycin Given: Not Given WEIGHT/LENGTH BABY A Infant Birthweight (gm): 4175 Weight (lb): 9 Infant Weight (oz): 3 Infant Length (in): 20.00 Length (cm): 50.80 CORD INFORMATION BABY A No. Cord Vessels: 3 Nuchal Cord : N/A Cord Blood Taken: Yes Suction: Mouth; Nose ASSESSMENT BABY A Infant Complications: None Physical Findings at Delivery: Within Normal Limits Infant Respirations: Appears Normal Debug Technician/ALS Called : No Transferred To: Remains with Mother
--- NOTE | 2018-11-30 15:11 | NSTRPT ---
NST Information Datetime Report Generated by CPN: 11/30/2018 15:11 Datetime: 11/24/2018 09:03 NST Information EGA: 39.2 Test Number: 4 Time on Monitor: 11/24/2018 09:32 Time off Monitor: 11/24/2018 10:02 NST Duration (Min): 30 Reason for NST: Other Reason for NST Other: Pylectasis Test and Monitor Explained: Monitor Explained; Test Explained; Verbalized Understanding Pulse: 112 Resp: 19 SBP: 109 DBP: 66 Test Evaluation NST Interventions: None Patient States Movement: Present Contraction Frequency: x1/60/mild/pain level 0 FHR Baseline : 125 Variability: Moderate 6-25bpm Accelerations: 15X15 Decelerations: None FHR Category: Category I NST Results: Reactive Provider Notified: 1200 Dr Ross reviewed pulse rate _ o@ sats/ [facility] Comments: To u/s gladys 13.8 cm cephalic right kidney=6.6mm left kidney=9.6 [id number] pulse oximeter applied-pulse 104-112; o2 sat 92-96%. Pt states she has had shortness of breath today only but no dizziness. Instructed to take deep breath with increase in o2 s at to 96% 1200 Dr Ross recommends pt go to labor _ delivery for delivery due to periods of low o2 sat with maternal tachycardis _ pt co SOB. Dt Hadadian given report of pt status _ recommendation for delivery . Pt notified of Dr recommendation _ will go to the hospital for induction today. records _ preliminary US results faxed to labor _ delivery. Report to Lakia Hogan RN that pt is coming to the ospital for direct admith _ induction. Electronically Signed By E-Signature: with User ID: [id number] Datetime: 11/20/2018 08:58 NST Information EGA: 38.5 NST Duration (Min): 61 Datetime: 11/17/2018 09:00 NST Information EGA: 38.2 NST Duration (Min): 23 Datetime: 11/13/2018 08:19 NST Information EGA: 37.5 NST Duration (Min): 26
== END 2018-11-27 17:13 | disposition home or self-care (01) | DRG 806 ==
LOC: L-D 13:44 → PP1 11-25 21:14
PROVIDERS: ADMIT Obstetrics & Gynecology; ATTEND Obstetrics & Gynecology
PROC: 3E0P7GC Introduction of Other Therapeutic Substance into Female Reproductive, Via Natural or Artificial Opening (ICD-10-PCS; 2018-11-24)
PROC: 4A1HXCZ Monitoring of Products of Conception, Cardiac Rate, External Approach (ICD-10-PCS; 2018-11-24)
PROC: 10E0XZZ Delivery of Products of Conception, External Approach (ICD-10-PCS; principal; 2018-11-25)
PROC: 0W8NXZZ Division of Female Perineum, External Approach (ICD-10-PCS; 2018-11-25)
PROC: 0UQGXZZ Repair Vagina, External Approach (ICD-10-PCS; 2018-11-25)
DX: O35.8XX0 Maternal care for other (suspected) fetal abnormality and damage, not applicable or unspecified (principal); O71.4 Obstetric high vaginal laceration alone; Z37.0 Single live birth; Z3A.39 39 weeks gestation of pregnancy
CPT/HCPCS: 62319; 76815; 85025; 85610; 85730; 86592; 86850; 86900; 86901; J2210; J2405; J2590; J3010; J7120; J7121